=== PATIENT | female | born 1940 | race Hispanic/Latino ===

== ENCOUNTER → 2018-09-28 | Outpatient (CLI) | payer OTHER ==
[~2018-09-28] VITALS: Ht 152.4 cm; Wt 61.2 kg
[~2018-09-28] MED LIST: REGADENOSON 0.4 MG/5 ML PF SYG IVP SCH
== END | disposition home or self-care (01) ==
LOC: SHCH 07:55 → EDUNIT# 08:00
PROVIDERS: ATTEND Internal Medicine Cardiovascular Disease
DX: R07.9 Chest pain, unspecified (principal)
CPT/HCPCS: 78452; 93017; 96374; A9500 ×2; J2785

== ENCOUNTER → 2018-11-06 | Outpatient (CLI) | payer OTHER | END | disposition home or self-care (01) | LOC: SHCH 12:47 | PROVIDERS: ATTEND Internal Medicine Cardiovascular Disease | DX: I08.3 Combined rheumatic disorders of mitral, aortic and tricuspid valves (principal); I11.9 Hypertensive heart disease without heart failure | CPT/HCPCS: 93306 ==

== ENCOUNTER 2019-05-04 05:55 | Day surgery (SDC) | payer OTHER ==
[2019-04-30 12:40] VITALS: BP 148/59
[2019-04-30 12:42] LABS: BASOPHILS % (AUTO) 0.7 % (0.0-5.0); EOSINOPHILS % (AUTO) 3.2 % (0.0-8.0); HEMATOCRIT 31.6 % (36-48); LYMPHOCYTES % (AUTO) 22.9 % (21.0-51.0); MEAN CORPUSCULAR HEMOGLOBIN 30.5 pg (27.0-33.0); MEAN CORPUSCULAR HGB CONC 34.9 g/dL (32.0-36.0); MEAN CORPUSCULAR VOLUME 87.3 fL (79-99); MONOCYTES % (AUTO) 8.2 % (3.0-13.0); PLATELET COUNT (AUTO) 162 K/uL (130-400); RED BLOOD CELL COUNT(AUTO) 3.61 MIL/uL (4.00-5.50); RED CELL DISTRIBUTION WIDTH 13.2 % (11.0-15.5)
[2019-04-30 12:56] LABS: CREATININE 0.7 mg/dL (0.5-1.5); INR 0.94 (0.85-1.15); PARTIAL THROMBOPLASTIN TIME 26.4 SEC (26.3-35.5); PROTHROMBIN TIME 9.9 SEC (9.6-11.6)
[2019-04-30 13:44] LABS: APPEARANCE,URINE Clear (CLEAR); BILIRUBIN,URINE Negative (NEGATIVE); COLOR,URINE Yellow (YELLOW); GLUCOSE, URINE (UA) Negative (NEGATIVE); KETONES,URINE Negative (NEGATIVE); LEUKOCYTE ESTERASE ,URINE Small (NEGATIVE); NITRATE,URINE Negative (NEGATIVE); OCCULT BLOOD,URINE Negative (NEGATIVE); PH,URINE 6.5 (5.0-8.0); PROTEIN,URINE Negative (NEGATIVE); UROBILINOGEN,URINE 0.2 mg/dL (0.2-1.0)
[2019-04-30 14:21] LABS: BACTERIA,URINE Few /HPF (None Seen); RBC,URINE 0-1 /HPF (0-1); SQUAMOUS EPITHELIAL CELL,UR Rare /HPF (0-2)
--- NOTE | 2019-05-03 13:06 | NUR ---
LABS ABNORMAL UA AND CHEST XRAY REPORTED TO DR. Raphael CROWELL, MESSAGE LEFT WITH MALIK AT HIS OFFICE, REPORT FAX TO OFFICE PER THERE REQUEST. PENDING ORDERS IF ANY
--- NOTE | 2019-05-03 14:02 | NUR ---
FOLLOW UP RECEIVED CALL BACK ON ABNORMAL UA AND CHEST XRAY NO FURTHER ORDERS GIVEN,
[~2019-05-04] VITALS: Ht 149.9 cm; Wt 58.7 kg
[2019-05-04] VITALS (12 sets, daily range): BP systolic 118–145; BP diastolic 52–61
[~2019-05-04 05:55] MED LIST changes: +AEC81 PO; +BRIM10DR16 OU; +CYCL30DR OU; +FLUT15.845 NS; +ISOS60TA4 PO; +LISI1TAB28 PO; +NITR0.4T50 SL; +OXYB5TAB15 PO; +PHARMACY COMMUNICATION MISC SCH; -REGADENOSON 0.4 MG/5 ML PF SYG IVP SCH; +SIMV10TA6 PO
[2019-05-04] MEDS ORDERED: SODIUM CHLORIDE 0.9% 1000ML 1,000 ML IV ONE (08:06)
[2019-05-04] MEDS ORDERED: BIVALIRUDIN 250 MG/VIAL IV ONE (09:46)
[2019-05-04] MEDS ORDERED: NITROGLYCERIN 5 MG/ML 10 ML VIAL IV ONE (09:46)
[2019-05-04] MEDS ORDERED: IOHEXOL 350 MG/ML 100ML INFUS..BTL IV ONE (09:46)
[2019-05-04] MEDS ORDERED: IOHEXOL-350 50ML VIAL IV ONE (09:46)
[2019-05-04] MEDS ORDERED: MIDAZOLAM HCL 1 MG/ML 2ML VIAL ONE (09:47)
[2019-05-04] MEDS ORDERED: LIDOCAINE HCL 2% 20ML ONE (09:47)
[2019-05-04] MEDS ORDERED: LABETALOL HCL 5 MG/ML 20ML VIAL IV ONE (11:00)
[2019-05-04] MEDS ORDERED: SODIUM CHLORIDE 0.9% 1000ML 1,000 ML IV SCH (11:14)
--- NOTE | 2019-05-04 15:45 | NUR ---
Pt discharged home, tolerating solids/liquids, ambulating well, voided. Pt denies any severe pain/nausea/dizziness. Pt and daughter instructed in routine and emergency care of right cath site. Pt and daughter deny any further questions. Cath site remains soft, non-tender, dry, clean, and intact s any evidence of bleeding.
== END 2019-05-04 15:45 | disposition home or self-care (01) ==
LOC: DAH 05:55
PROVIDERS: ATTEND Internal Medicine Cardiovascular Disease
DX: I25.118 Atherosclerotic heart disease of native coronary artery with other forms of angina pectoris (principal); I11.0 Hypertensive heart disease with heart failure; I50.32 Chronic diastolic (congestive) heart failure; M19.90 Unspecified osteoarthritis, unspecified site; M81.0 Age-related osteoporosis without current pathological fracture; E78.5 Hyperlipidemia, unspecified; K21.9 Gastro-esophageal reflux disease without esophagitis; Z98.890 Other specified postprocedural states; Z90.710 Acquired absence of both cervix and uterus; Z88.8 Allergy status to other drugs, medicaments and biological substances; Z79.82 Long term (current) use of aspirin; Z79.899 Other long term (current) drug therapy; Z85.038 Personal history of other malignant neoplasm of large intestine; Z82.49 Family history of ischemic heart disease and other diseases of the circulatory system; Z83.3 Family history of diabetes mellitus; Z82.3 Family history of stroke
CPT/HCPCS: 36415; 71045; 80048; 81001; 85025; 85610; 85730; 93005; 93458; A4215; A4216; A4221; A4222; A4223 ×3; A4606; A4663; C1760; C1894; J1644; J3490 ×3; J7030; Q9965; Q9967 ×2; J0583; J2250